=== PATIENT | female | born 1945 | race Caucasian/White ===

== ENCOUNTER → 2016-11-13 | Outpatient (CLI) | payer MEDICARE, OTHER ==
[~2016-11-13] MED LIST: CARBAMAZEPINE200 MG PO; DIVIGEL1 GM TP; DOMP10T PO; ESTRACE42.5 GM VG; INDERAL80 MG PO; MUCINEX1200 MG PO; MUCUS RELIEF400 MG PO; PANTOPRAZOLE SO40 MG PO; PROTONIX40 MG PO; RECLAST5 MG/100 M IV; TEGRETOL200 MG PO
== END | disposition home or self-care (01) ==
LOC: CDC 10:21
DX: R00.1 Bradycardia, unspecified (principal)
CPT/HCPCS: 93000

== ENCOUNTER 2016-11-20 06:55 | Day surgery (SDC) | payer OTHER ==
[~2016-11-20] VITALS: Ht 157.5 cm; Wt 61.2 kg
[2016-11-20 07:28] VITALS: BP 130/71
[2016-11-20 11:08] VITALS: BP 140/49
[2016-11-20 12:10] VITALS: BP 150/63
== END 2016-11-20 11:55 | disposition home or self-care (01) ==
LOC: SDC 06:55
PROC: 0UDB8ZX Extraction of Endometrium, Via Natural or Artificial Opening Endoscopic, Diagnostic (ICD-10-PCS; principal; 2016-11-20)
DX: R93.8 Abnormal findings on diagnostic imaging of other specified body structures (principal); N85.4 Malposition of uterus; K21.9 Gastro-esophageal reflux disease without esophagitis; G25.0 Essential tremor; M19.90 Unspecified osteoarthritis, unspecified site; E66.3 Overweight; Z68.25 Body mass index [BMI] 25.0-25.9, adult; M81.0 Age-related osteoporosis without current pathological fracture; Z82.49 Family history of ischemic heart disease and other diseases of the circulatory system; Z82.5 Family history of asthma and other chronic lower respiratory diseases; Z80.3 Family history of malignant neoplasm of breast; Z80.0 Family history of malignant neoplasm of digestive organs; Z88.2 Allergy status to sulfonamides
CPT/HCPCS: 88305; J0131; J1885; J2250; J3010

== ENCOUNTER → 2017-10-05 | Outpatient (CLI) | payer OTHER ==
[~2017-10-05] VITALS: Ht 157.5 cm; Wt 62.0 kg
[2017-10-05 12:58] VITALS: BP 130/60
== END | disposition home or self-care (01) ==
LOC: IVINF 12:43
DX: M81.0 Age-related osteoporosis without current pathological fracture (principal)
CPT/HCPCS: 96365; J3489